=== PATIENT | female | born 1965 | race Caucasian/White ===

== ENCOUNTER 2021-09-19 07:17 | Emergency (ER) | payer OTHER ==
[~2021-09-19] VITALS: Ht 160 cm; Wt 132.8 kg
[2021-09-19] MEDS ORDERED: FAMOTIDINE20 MG PO (07:33)
[2021-09-19] MEDS ORDERED: HYDROCHLOROTH12.5 M1 PO (07:33)
[2021-09-19] MEDS ORDERED: EUTHYROX150 MCG PO (07:33)
[2021-09-19] MEDS ORDERED: LOSARTAN POTASS50 MG PO (07:33)
[2021-09-19] MEDS ORDERED: CITALOPRAM HBR20 MG PO (07:34)
[2021-09-19] MEDS ORDERED: DIFLUCAN150 MG PO (07:48)
== END 2021-09-19 07:56 | disposition home or self-care (01) ==
LOC: ED 07:17
DX: B37.3 Candidiasis of vulva and vagina (principal); E11.9 Type 2 diabetes mellitus without complications; Z88.8 Allergy status to other drugs, medicaments and biological substances; Z79.899 Other long term (current) drug therapy
CPT/HCPCS: 99282